=== PATIENT | female | born 1975 | race Caucasian/White ===

== ENCOUNTER → 2017-07-08 | Outpatient (CLI) | payer BC ==
--- NOTE | 2017-07-08 16:27 | RADIOLOGY REPORT PS360 ---
ACROMIOCLAVICULAR JOINTS-RT COMPARISON: Right shoulder 02/13/2011 HISTORY: Chronic right shoulder pain TECHNIQUE: 2 views of the right shoulder and AC joint FINDINGS: There is minimal spurring of the superior border of the clavicle near the AC joint. This has shown slight interval increase in size when compared to the previous study. There is a faint calcification abutting the humeral head near the expected insertion of the supraspinatus tendon which was not seen previously. 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
[2017-07-08 20:31] LABS: AMPHETAMINES/METAMPHETAMINES NEGATIVE ng/mL (<1000)
== END ==
LOC: RAD 15:53 → LAB 15:53
PROVIDERS: Emergency Medicine
DX: M25.511 Pain in right shoulder (principal); Z79.899 Other long term (current) drug therapy

== ENCOUNTER → 2017-07-26 | Outpatient (CLI) | payer BC ==
[~2017-07-26] MED LIST: SENOKOT8.6 MG PO; TYLENOL ES500 M1 PO
[2017-07-26 18:24] LABS: AMPHETAMINES/METAMPHETAMINES NEGATIVE ng/mL (<1000)
[2017-08-02 16:37] LABS: Opiates Negative (Cutoff=100)
== END ==
LOC: LAB 17:22
PROVIDERS: Emergency Medicine
DX: Z79.899 Other long term (current) drug therapy (principal)